=== PATIENT | male | born 1940 | race Caucasian/White ===

== ENCOUNTER 2016-09-01 11:55 | Outpatient (CLI) | payer MEDICARE | END 2016-09-01 23:59 | disposition home or self-care (01) | LOC: RAD 11:55 | PROVIDERS: ATTEND Family Medicine | DX: R50.9 Fever, unspecified (principal) | CPT/HCPCS: 71020-TC ==

== ENCOUNTER 2016-10-10 13:37 | Inpatient (IN) | payer MEDICARE ==
[2016-10-10] VITALS: BP 113/73
[~2016-10-10] VITALS: Ht 182.9 cm; Wt 90.8 kg
--- NOTE | 2016-10-10 13:55 | NUR ---
PT BIB SELF HE COMPLAINS OF MID STERNAL CHEST PRESSURE, NON RADIATING WITH SOB X 2 HOURS BEND UP. PT AMBULATORY ALERT ABLE TO MAKE NEEDS KNOWN. PLACED ON MONITOR. VSS.
[2016-10-10] MEDS ORDERED: ASPIRIN 325 MG TABLET ONE ×2 (13:56→15:19)
[2016-10-10] MEDS ORDERED: NITROGLYCERIN 0.4 MG/TAB BOTTLE ONE (13:56)
[2016-10-10] MEDS ORDERED: NITROGLYCERIN 0.4 MG/TAB BOTTLE SL ONE (14:00)
[2016-10-10] MEDS: ASPIRIN 325 MG TABLET PO ONE ×2 (14:01→14:05)
--- NOTE | 2016-10-10 14:01 | NUR ---
NITROGLYCERIN SL GIVEN
[2016-10-10 14:02] LABS: BASOPHILS % (AUTO) 0.1 % (0.0-2.0); EOSINOPHILS # (AUTO) 0.2 /CMM (0.0-0.7); EOSINOPHILS % (AUTO) 1.6 % (0.0-6.0); HEMATOCRIT 39 % (39-51); HEMOGLOBIN 12.9 g/dL (13.5-17.5); LYMPHOCYTES # (AUTO) 0.7 /CMM (0.8-4.8); LYMPHOCYTES % (AUTO) 7.7 % (20.0-44.0); MEAN CORPUSCULAR HEMOGLOBIN 27 PG (26.0-33.0); MEAN CORPUSCULAR HGB CONC 33 g/dl (31.0-36.0); MEAN CORPUSCULAR VOLUME 81 fL (80-96); MONOCYTES # (AUTO) 0.8 /CMM (0.1-1.30); MONOCYTES % (AUTO) 7.9 % (2.0-12.0); NEUTROPHILS # (AUTO) 7.9 /CMM (1.8-8.9); NEUTROPHILS % (AUTO) 82.7 % (43.0-81.0); PLATELET COUNT (AUTO) 183 /CMM (150-450); RDW COEFFICIENT OF VARIATION 15.8 (11.5-15.0); RED BLOOD CELL COUNT(AUTO) 4.75 MIL/uL (4.5-6.0); WHITE BLOOD COUNT (AUTO) 9.6 K/uL (4.3-11.0)
--- NOTE | 2016-10-10 14:05 | NUR ---
PT REFUSED ASPIRIN DUE TO SURGERY NEXT WEEK . MADE AWARE
--- NOTE | 2016-10-10 14:06 | NUR ---
NITROGLYCERIN GIVEN X2 ORDERED EVERY 5 MINS PT STILL COMPLAINS OF PRESSURE ON CHEST. BP 106/72 .HR 100
[2016-10-10 14:13] LABS: CALCIUM, SERUM 8.3 mg/dL (8.5-10.1); CARBON DIOXIDE 26 mmol/L (21-32); CHLORIDE 105 mmol/L (98-107); CREATININE 0.9 mg/dL (0.6-1.3); GLUCOSE 118 mg/dL (74-106); POTASSIUM 4.1 mmol/L (3.5-5.1); SODIUM SERUM 140 mmol/L (136-145); UREA NITROGEN, BLOOD 15 mg/dL (7-18)
[2016-10-10 14:16] LABS: PROTHROMBIN TIME 10.5 SECS (9.5-12.7)
[2016-10-10 14:21] LABS: TROPONIN I < 0.017 ng/mL (0.00-0.056)
[2016-10-10 14:25] LABS: B-TYPE NATRIURETIC PEPTIDE 592 PG/ML (0-125)
[2016-10-10] MEDS ORDERED: IV NS 0.9% 500 ML BAG IV ONE (15:00)
[2016-10-10] MEDS ORDERED: ASPIRIN 325 MG TABLET PO ONE (15:00)
--- NOTE | 2016-10-10 15:10 | NUR ---
PAGED CAMPAIGN MARKETING SPECIALIST PANEL DOCTOR - AWAITING CALL BACK
[2016-10-10] MEDS ORDERED: IV SET PRIMARY PUMP SET 1 EA INFUS.SET MC ONE (15:19)
[2016-10-10] MEDS ORDERED: IV NS 0.9% 1,000 ML ONE (15:19)
--- NOTE | 2016-10-10 15:19 | NUR ---
LAC#20 IV ACCESS
[2016-10-10] MEDS ORDERED: ACETAMINOPHEN 325 MG TABLET PO PRN (16:00)
[2016-10-10] MEDS ORDERED: ONDANSETRON HCL/PF 4 MG/2 ML VIAL IVP PRN (16:00)
[2016-10-10] MEDS ORDERED: Z GUARD REMEDY 2 OZ OINT TP PRN (16:00)
[2016-10-10] MEDS ORDERED: ENOXAPARIN SODIUM 60 MG/0.6 ML DISP.SYRIN SQ ONE (16:00)
[2016-10-10] MEDS ORDERED: NITROGLYCERIN 0.4 MG/TAB BOTTLE SL PRN (16:00)
[2016-10-10] MEDS ORDERED: MAG HYDROX/AL HYDROX/SIMETH 30 ML UDC PO PRN (16:00)
[2016-10-10] MEDS ORDERED: ZOLPIDEM TARTRATE 5 MG TABLET PO PRN (16:00)
[2016-10-10] MEDS ORDERED: MAGNESIUM HYDROXIDE 30 ML UDC PO PRN (16:00)
[2016-10-10] MEDS ORDERED: HYDROCODONE/APAP 5/325MG 1 EACH TABLET PO PRN (16:00)
--- NOTE | 2016-10-10 16:27 | NUR ---
TRANSFER PT TO TELEMETRY FLOOR VIA GURNEY USING ACLS PROTOCOL. BELONGINGS SENT WITH PATIENT. GAVE REPORT TO JENAE BECKWITH . PT MARTÍNSPARAM IN STABLE CONDITION.
[2016-10-10] MEDS: SIMVASTATIN 20 MG TABLET PO SCH ×2 (18:09→22:00)
[2016-10-10] MEDS: METOPROLOL TARTRATE 25 MG TABLET PO SCH (18:09)
[2016-10-10 18:32] LABS: THYROID STIMULATING HORMONE 0.79 uIU/mL (0.358-3.74)
[2016-10-10 18:44] LABS: MAGNESIUM 1.7 mg/dL (1.8-2.4); PHOSPHORUS 3.7 mg/dL (2.5-4.9)
[2016-10-10 20:00] VITALS: BP 104/60
--- NOTE | 2016-10-10 20:07 | NUR ---
RN CLOSING NOTES GAVE REPORT TO VISCOSITY WORKER NURSE. PATIENT IS IN STABLE CONDITION. COMPLAINS OF PAIN PRESSURE. BED IN LOW POSITION, LOCKED AND 2 SIDE RAILS ARE UP. MEDS LIST RECEIVED VERBALLY FROM PATIENT AND ENDORSED TO VISCOSITY WORKER NURSE TO ENTER TO THE SYSTEM. DR. SIGALA MADE AWARE OF PATIENT HOME LIST. PATIENT FRIEND GUILLERMO CHEN WILL COME AROUND 2129 TO TAKE THE PATIENT CAR'S INMAN AND BRING HIS CPAP. CHARGE NURSE AND SECURITY MADE AWARE. PATIENT HAS NO SIGN AND SYMPTOMS OF DISTRESS.
[2016-10-10] MEDS ORDERED: ACET-868 PO (20:14)
[2016-10-10] MEDS ORDERED: [UNRECOGNIZED DRUG - OTHER] PO (20:14)
[2016-10-10] MEDS ORDERED: GABA300C PO (20:14)
[2016-10-10] MEDS ORDERED: LIPITOR (20:14)
[2016-10-10] MEDS ORDERED: CALC-838 PO (20:14)
[2016-10-10] MEDS ORDERED: UBID100C26 PO (20:14)
[2016-10-10] MEDS ORDERED: BENA20TA78 PO (20:14)
[2016-10-10] MEDS ORDERED: METO25TA20 PO (20:14)
[2016-10-10] MEDS: MORPHINE SULFATE INJ 2 MG/ML DISP.SYRIN IV PRN (23:12)
[2016-10-11] VITALS (7 sets, daily range): BP systolic 102–119; BP diastolic 54–73
[2016-10-11] MEDS: METOPROLOL TARTRATE 25 MG TABLET PO SCH ×2 (06:27→15:49)
--- NOTE | 2016-10-11 06:30 | NUR ---
[facility] [employer] NOTES AWAKE & RESPONSIVE. NOT IN ANY DISTRESS. NO SOB NOTED. DENIES ANY PAIN OR DISCOMFORT AT THIS TIME. ON TELE AFIB/AFLUTTER @ 67 WITH IVF INFUSING WELL. AM CARE DONE. MONITORED ACCORDINGLY. CALL LIGHT WITHIN REACH. BED IN LOWEST POSITION. SR UP X 2 FOR SAFETY. WILL ENDORSE TO NEXT SHIFT.
[2016-10-11] MEDS: MORPHINE SULFATE INJ 2 MG/ML DISP.SYRIN IV PRN (06:35)
[2016-10-11 06:52] LABS: BASOPHILS % (AUTO) 0.3 % (0.0-2.0); EOSINOPHILS # (AUTO) 0.1 /CMM (0.0-0.7); EOSINOPHILS % (AUTO) 0.6 % (0.0-6.0); HEMATOCRIT 36 % (39-51); HEMOGLOBIN 11.9 g/dL (13.5-17.5); LYMPHOCYTES # (AUTO) 0.7 /CMM (0.8-4.8); LYMPHOCYTES % (AUTO) 7.8 % (20.0-44.0); MEAN CORPUSCULAR HEMOGLOBIN 27 PG (26.0-33.0); MEAN CORPUSCULAR HGB CONC 33 g/dl (31.0-36.0); MEAN CORPUSCULAR VOLUME 81 fL (80-96); MONOCYTES # (AUTO) 1.4 /CMM (0.1-1.30); MONOCYTES % (AUTO) 15.4 % (2.0-12.0); NEUTROPHILS # (AUTO) 6.7 /CMM (1.8-8.9); NEUTROPHILS % (AUTO) 75.9 % (43.0-81.0); PLATELET COUNT (AUTO) 185 /CMM (150-450); RDW COEFFICIENT OF VARIATION 17.1 (11.5-15.0); RED BLOOD CELL COUNT(AUTO) 4.46 MIL/uL (4.5-6.0); WHITE BLOOD COUNT (AUTO) 8.8 K/uL (4.3-11.0)
[2016-10-11 07:14] LABS: THYROID STIMULATING HORMONE 0.669 uIU/mL (0.358-3.74)
[2016-10-11 07:17] LABS: CALCIUM, SERUM 8.2 mg/dL (8.5-10.1); MAGNESIUM 1.6 mg/dL (1.8-2.4); PHOSPHORUS 3.3 mg/dL (2.5-4.9); POTASSIUM 4.4 mmol/L (3.5-5.1)
--- NOTE | 2016-10-11 08:04 | NUR ---
AM NOTES RECEIVED PT IN STABLE CONDITION, NO PAIN NOTED, PAIN MEDICATION WITH HELP, WILL MONITOR.
[2016-10-11] MEDS: ASPIRIN EC 81 MG TABLET.DR PO SCH (08:33)
[2016-10-11] MEDS: PANTOPRAZOLE 40 MG TABLET.DR PO SCH (08:33)
[2016-10-11] MEDS ORDERED: SECONDARY IV SET 1 EA INFUS.SET MC ONE (09:40)
[2016-10-11] MEDS: Magnesium 1GM/D5W 100ML PREMIX 100 ML IV SCH ×2 (09:44→11:10)
[2016-10-11 09:48] LABS: BASOPHILS % (MANUAL) 0 % (0.0-2.0); EOSINOPHILS % (MANUAL) 0 % (0-4); LYMPHOCYTES % (MANUAL) 17 % (16-48); MONOCYTES % (MANUAL) 13 % (0-11.0); NEUTROPHILS % (MANUAL) 70 (42-76)
[2016-10-11 09:49] LABS: HYPOCHROMASIA 1+; PLATELET ESTIMATE ADEQ
[2016-10-11] MEDS ORDERED: HYDROMORPHONE INJ 2 MG/ML DISP.SYRIN IV PRN (12:00)
--- NOTE | 2016-10-11 18:36 | NUR ---
PT IN STABLE CONDITION, NO SOB OR DISTRESS NOTED, PAIN MEDICATION WITH HELP, WILL INDORSE TO NEXT SHIFT FOR JOSE
--- NOTE | 2016-10-11 20:00 | NUR ---
MS ELIEL INITIAL NOTES PT SEEN IN BED AWAKE AND ALERT TALKING TO SOMEONE ON HIS CELLPHONE. DENIES ANY PAIN AT THIS TIME. HE STATED "IM OK". HEPLOCK PATENT AND INTACT. ENCOURAGE HIM TO USE THE CALL LIGHT IF NEEDS SOME HELP OR NEED THE NURSE. KEPT HIM COMFORTABLE AT ALL TIMES. WILL CONTINUE TO MONITOR.
[2016-10-11] MEDS: SIMVASTATIN 20 MG TABLET PO SCH (22:11)
[2016-10-12] MEDS: METOPROLOL TARTRATE 25 MG TABLET PO SCH ×2 (04:16→16:07)
[2016-10-12 07:36] LABS: EOSINOPHILS % (AUTO) 0.1 % (0.0-6.0); HEMATOCRIT 38 % (39-51); HEMOGLOBIN 12.5 g/dL (13.5-17.5); LYMPHOCYTES # (AUTO) 0.6 /CMM (0.8-4.8); LYMPHOCYTES % (AUTO) 6.8 % (20.0-44.0); MEAN CORPUSCULAR HEMOGLOBIN 27 PG (26.0-33.0); MEAN CORPUSCULAR HGB CONC 33 g/dl (31.0-36.0); MEAN CORPUSCULAR VOLUME 82 fL (80-96); MONOCYTES # (AUTO) 0.9 /CMM (0.1-1.30); MONOCYTES % (AUTO) 11.4 % (2.0-12.0); NEUTROPHILS # (AUTO) 6.8 /CMM (1.8-8.9); NEUTROPHILS % (AUTO) 81.7 % (43.0-81.0); PLATELET COUNT (AUTO) 179 /CMM (150-450); RDW COEFFICIENT OF VARIATION 16.8 (11.5-15.0); RED BLOOD CELL COUNT(AUTO) 4.66 MIL/uL (4.5-6.0); WHITE BLOOD COUNT (AUTO) 8.3 K/uL (4.3-11.0)
--- NOTE | 2016-10-12 07:57 | NUR ---
DAIRY HUSBANDRY TEACHER CLOSING NOTES PT AWAKE AND ALERT WATCHING TV, HE SLEPT WELL AFTER WE GAVE ZOFRAN GIVEN TO EASE HIS N/V. NO SIGNS OF ANY ACUTE DISTRESS NOTED, KEPT HIM ON SEMI FOWLERS POSITION . ALL DUE MEDS GIVEN AND ALL NEEDS MET. ENDORSE TO AM NURSE FOR CONTINUITY OF CARE.
[2016-10-12 08:00] VITALS: BP 94/65
[2016-10-12 08:07] LABS: CALCIUM, SERUM 8.8 mg/dL (8.5-10.1); CREATININE 0.9 mg/dL (0.6-1.3); MAGNESIUM 2.2 mg/dL (1.8-2.4); PHOSPHORUS 3.6 mg/dL (2.5-4.9); POTASSIUM 4.8 mmol/L (3.5-5.1)
[2016-10-12] MEDS: PANTOPRAZOLE 40 MG TABLET.DR PO SCH (08:17)
[2016-10-12] MEDS: ASPIRIN EC 81 MG TABLET.DR PO SCH (08:17)
--- NOTE | 2016-10-12 08:20 | NUR ---
RN MS NOTES PATIENT IN BED, ALERT AND ORIENTED, NO DISTRESS NOTED, NO COMPLAINT OF CHEST PAIN NOR N/V AT THIS TIME, ALL DUE MEDS GIVEN ORDERED, BREAKFAST CONSUMED AND TOLERATED WELL, PIV ON LAC PATENT AND INTACT, FLUSHES WELL, SAFETY MEASURES OBSERVED, CALL LIGHT PLACED WITHIN REACH, WILL CONTINUE TO MONITOR.
[2016-10-12 10:55] VITALS: BP 110/70
--- NOTE | 2016-10-12 11:16 | NUR ---
RN MS NOTES PATIENT SEEN BY DR. MÉNDEZ WITH NEW ORDER OF STRESS TEST FOR TOMORROW. ORDER NOTED AND CARRIED OUT.
[2016-10-12] MEDS ORDERED: MORPHINE SULFATE INJ 2 MG/ML DISP.SYRIN IV PRN (12:00)
[2016-10-12 16:00] VITALS: BP 125/82
--- NOTE | 2016-10-12 17:41 | NUR ---
RN MS NOTES PATIENT IN STABLE CONDITION, NO SIGNIFICANT CHANGE THIS SHIFT, FAMILY AT BEDSIDE FOR SUPPORT, WILL HAVE STRESS TEST IN AM, CONSENT SIGNED, NPO AFTER MIDNIGHT, PATIENT AWARE AND VERBALIZED UNDERSTANDING, PIV HL ON LEFT AC PATENT AND INTACT, FLUSHES WELL WITH NS, DENIES PAIN OR DISCOMFORT AT THIS TIME, CALL LIGHT WITHIN REACH, SAFETY MEASURES OBSERVED, LOW BED/LOCKED POSITION, SIDERAILS X2 UP, WILL CONTINUE TO MONITOR.
--- NOTE | 2016-10-12 18:58 | NUR ---
RN MS NOTES PATIENT WITH NO SIGNIFICANT CHANGE THIS SHIFT, NO COMPLAINT OF PAIN OR N/V AT THIS TIME, ASSISTED WITH ADL CARE, BED LOW LOCKED/POSITION, CALL LIGHT WITHIN REACH, WILL ENDORSE TO LAND RESOURCE SPECIALIST FOR JOSE.
--- NOTE | 2016-10-12 19:30 | NUR ---
MS RN INITIAL NOTE RECEIVED PT AWAKE AND ALERT, ORIENTED X4, AMBULATORY WITH A STEADY GAIT, NO COMPLAINTS OF PAIN OR RESPIRATORY DISTRESS NOTED DURING PHYSICAL ASSESSMENT, PT WILL BE NPO AFTER MIDNIGHT FOR LEXISCAN NUCLEAR STRESS TEST TOMORROW IN AM, CONSENTS SIGNED BY PATIENT AND PLACED IN CHART BY AM NURSE, LAC #20G IS INTACT AND PATENT SL, SAFETY MEASURES WILL BE KEPT IN PLACE, WILL ATTEND TO NEEDS DURING HOURLY ROUNDS AND NEEDED.
[2016-10-12 20:00] VITALS: BP 111/73
[2016-10-12] MEDS: SIMVASTATIN 20 MG TABLET PO SCH (21:57)
[2016-10-13 02:30] LABS: T3, FREE 2.8 pg/mL (2.0-4.4)
[2016-10-13] MEDS: METOPROLOL TARTRATE 25 MG TABLET PO SCH (04:32)
--- NOTE | 2016-10-13 05:45 | NUR ---
MS RN CLOSING NOTE PT REMAINED STABLE DURING JACK SPINNER, NO SIGNIFICANT CHANGES NOTED, NO PAIN OR RESPIRATORY DISTRESS NOTED DURING HOURLY ROUNDS, PT SLEPT INTERMITTENTLY EVEN AFTER AMBIEN WAS PROVIDED PER PATIENT'S REQUEST, PT IS SCHEDULE TO HAVE A LEXISCAN STRESS TEST TODAY POSSIBLY (8-8:30) CONSENT HAS BEEN SIGNED AND PLACED IN THE CHART, PT IS CLEAN/DRY AND COMFORTABLE, ALL NEED ATTENDED TO DURING HOURLY ROUNDS, WILL ENDORSE TO INCOMING NURSE FOR JOSE.
[2016-10-13] MEDS: PANTOPRAZOLE 40 MG TABLET.DR PO SCH (07:30)
[2016-10-13 08:00] VITALS: BP 105/63
--- NOTE | 2016-10-13 08:00 | NUR ---
MS/RN AM NOTES RECEIVED PATIENT IN BED, WITHOUT SOB, DENIES PAIN, IN STABLE CONDITION. O2 IN PLACE N/C 2L/M 02 SAT 96%. PATIENT IS NPO FOR CARDIAC TEST, WILL CONTINUE TO MONITOR ACCORDINGLY
[2016-10-13] MEDS ORDERED: REGADENOSON 0.4 MG/5 ML DISP.SYRIN IVP ONE (09:00)
[2016-10-13] MEDS: ASPIRIN EC 81 MG TABLET.DR PO SCH (09:00)
[2016-10-13] MEDS ORDERED: Aspirin PO (13:40)
--- NOTE | 2016-10-13 15:55 | NUR ---
DISCHARGED PATIENT IN STABLE CONDITION, VITAL SIGNS 115/76, 62, 18, 97.7, 96% RA 0/10 PAIN. DISCHARGE CARE PAPERS GIVEN, EXPLAINED, VERBALIZED UNDERSTANDING, ENCOURAGED TO F/U WITH PRIMARY CARE DOCTOR WITHIN A WEEK. ASSISTED TO THE CAR BY W/C WITH EXHAUST TENDER HELP AND FRIEND GUILLERMO
== END 2016-10-13 16:00 | disposition home or self-care (01) | DRG 206 ==
LOC: ER 13:40 → TELE 15:53 → MED 10-11 11:25
PROVIDERS: ADMIT Internal Medicine; ATTEND Internal Medicine
DX: M94.0 Chondrocostal junction syndrome [Tietze] (principal); I48.92 Unspecified atrial flutter; D68.59 Other primary thrombophilia; B02.29 Other postherpetic nervous system involvement; I10 Essential (primary) hypertension; I25.10 Atherosclerotic heart disease of native coronary artery without angina pectoris; I48.2 Chronic atrial fibrillation; K21.9 Gastro-esophageal reflux disease without esophagitis; M19.90 Unspecified osteoarthritis, unspecified site; N40.0 Benign prostatic hyperplasia without lower urinary tract symptoms; M51.36 Other intervertebral disc degeneration, lumbar region; D50.9 Iron deficiency anemia, unspecified; I27.2 Other secondary pulmonary hypertension; Z98.61 Coronary angioplasty status; R79.89 Other specified abnormal findings of blood chemistry
CPT/HCPCS: 36415; 71010-TC; 80048-TC; 80061-TC; 82024; 82306; 82533; 82728-TC; 82746; 83540-TC; 83735-TC; 83880; 84100-TC; 84146; 84402; 84403; 84439-TC; 84443-TC; 84481; 84484-TC; 85025-TC; 85730-TC; 87081-TC; 93307-TC; 93970-TC; A4606; A9502; J1170; J1650; J2270; J2405; J2785; J3475; J7030; Z7610

== ENCOUNTER 2016-11-20 09:51 | Outpatient (CLI) | payer MEDICARE ==
[~2016-11-20 09:51] MED LIST: ACET-868 PO; BENA20TA78 PO; CALC-838 PO; GABA300C PO; LIPITOR; METO25TA20 PO; UBID100C26 PO; [UNRECOGNIZED DRUG - OTHER] PO
== END 2016-11-20 23:59 | disposition home or self-care (01) ==
LOC: CT 09:51
PROVIDERS: ATTEND Family Medicine
DX: I67.82 Cerebral ischemia (principal); G31.9 Degenerative disease of nervous system, unspecified
CPT/HCPCS: 70450-TC

== ENCOUNTER 2017-11-30 09:19 | Outpatient (CLI) | payer MEDICARE ==
[~2017-11-30 09:19] MED LIST changes: -UBID100C26 PO; +UBID100C45 PO
== END 2017-11-30 23:59 | disposition home or self-care (01) ==
LOC: CT 09:19
PROVIDERS: ATTEND Family Medicine
DX: I67.2 Cerebral atherosclerosis (principal); I67.82 Cerebral ischemia; M48.02 Spinal stenosis, cervical region; M19.012 Primary osteoarthritis, left shoulder; M43.12 Spondylolisthesis, cervical region
CPT/HCPCS: 70450-TC; 72125-TC; 73200-TC

== ENCOUNTER 2017-12-31 09:02 | Outpatient (CLI) | payer MEDICARE | END 2017-12-31 23:59 | disposition home or self-care (01) | LOC: CT 09:02 | PROVIDERS: ATTEND Family Medicine | DX: I71.2 Thoracic aortic aneurysm, without rupture (principal); E27.8 Other specified disorders of adrenal gland; K86.89 Other specified diseases of pancreas | CPT/HCPCS: 71250-TC ==

== ENCOUNTER 2018-05-24 09:46 | Outpatient (CLI) | payer MEDICARE ==
[2018-06-09] MEDS ORDERED: ATOR10TA PO (12:36)
[2018-06-09] MEDS ORDERED: RANI150T8 PO (12:36)
[2018-06-09] MEDS ORDERED: APIX5TAB PO (12:36)
[2018-06-09] MEDS ORDERED: ASPI-1169 PO (12:36)
[2018-06-09] MEDS ORDERED: BUPR-51 PO (12:36)
[2018-06-09] MEDS ORDERED: LOSA25TA13 PO (12:36)
[2018-06-09] MEDS ORDERED: TEST200V3 IM (12:38)
== END 2018-05-24 23:59 | disposition home or self-care (01) ==
LOC: CT 09:46
PROVIDERS: ATTEND Family Medicine
DX: I67.2 Cerebral atherosclerosis (principal); I67.82 Cerebral ischemia
CPT/HCPCS: 70450-TC

== ENCOUNTER 2018-07-21 14:11 | Outpatient (CLI) | payer MEDICARE ==
[~2018-07-21 14:11] MED LIST changes: -ACET-868 PO; +APIX5TAB PO; +ASPI-1169 PO; +ATOR10TA PO; +BUPR-51 PO; -LIPITOR; +LOSA25TA27 PO; -METO25TA20 PO; +RANI150T8 PO; +TEST200V3 IM; -[UNRECOGNIZED DRUG - OTHER] PO
== END 2018-07-21 23:59 | disposition home or self-care (01) ==
LOC: RAD 14:11
PROVIDERS: ATTEND Family Medicine
DX: M16.11 Unilateral primary osteoarthritis, right hip (principal); M47.896 Other spondylosis, lumbar region
CPT/HCPCS: 73502

== ENCOUNTER 2018-08-16 15:25 | Outpatient (CLI) | payer MEDICARE | END 2018-08-16 23:59 | disposition home or self-care (01) | LOC: RAD 15:25 | PROVIDERS: ATTEND Family Medicine | DX: M47.816 Spondylosis without myelopathy or radiculopathy, lumbar region (principal) | CPT/HCPCS: 71100-TC; 73502 ==

== ENCOUNTER 2018-10-17 13:59 | Outpatient (CLI) | payer MEDICARE | END 2018-10-17 23:59 | disposition home or self-care (01) | LOC: CT 13:59 | PROVIDERS: ATTEND Family Medicine | DX: I67.82 Cerebral ischemia (principal); I67.2 Cerebral atherosclerosis | CPT/HCPCS: 70450-TC ==

== ENCOUNTER 2019-03-30 10:26 | Emergency (ER) | payer MEDICARE | END 2019-03-30 12:55 | disposition home or self-care (01) | DX: S00.11XA Contusion of right eyelid and periocular area, initial encounter (principal); S63.592A Other specified sprain of left wrist, initial encounter; S63.591A Other specified sprain of right wrist, initial encounter; R51 Headache; I10 Essential (primary) hypertension; I25.2 Old myocardial infarction; K21.9 Gastro-esophageal reflux disease without esophagitis; K50.90 Crohn's disease, unspecified, without complications; Z95.5 Presence of coronary angioplasty implant and graft; Z85.828 Personal history of other malignant neoplasm of skin; Z79.82 Long term (current) use of aspirin; W01.0XXA Fall on same level from slipping, tripping and stumbling without subsequent striking against object, initial encounter; Y93.01 Activity, walking, marching and hiking; Y92.481 Parking lot as the place of occurrence of the external cause; Y99.8 Other external cause status ==

== ENCOUNTER 2019-04-05 10:43 | Outpatient (CLI) | payer MEDICARE | END 2019-04-05 23:59 | disposition home or self-care (01) | LOC: RAD 10:43 | PROVIDERS: ATTEND Family Medicine | DX: M19.011 Primary osteoarthritis, right shoulder (principal); M18.12 Unilateral primary osteoarthritis of first carpometacarpal joint, left hand; M18.11 Unilateral primary osteoarthritis of first carpometacarpal joint, right hand; I70.0 Atherosclerosis of aorta; M79.89 Other specified soft tissue disorders; Z95.0 Presence of cardiac pacemaker | CPT/HCPCS: 71100-TC; 73200-TC ==

== ENCOUNTER 2021-05-06 12:13 | Inpatient (IN) | payer MEDICARE ==
[~2021-05-06] VITALS: Ht 188 cm; Wt 92.1 kg
[~2021-05-06 12:13] MED LIST changes: -BUPR-51 PO; +BUPR-54 PO
--- NOTE | 2021-05-06 12:25 | NUR ---
Patient came in to the er sent by PMD due to dizziness and headache since this morning around 7am. On room air, breathing evenly and unlabored. Connected to the monitor adn pulse ox. kept comfortable, will continue to monitor accordingly.
[2021-05-06] MEDS ORDERED: MECLIZINE HCL 12.5 MG TABLET PO ONE (12:30)
[2021-05-06] MEDS ORDERED: IV NS 0.9% 1,000 ML BAG IV ONE (12:30)
[2021-05-06] MEDS ORDERED: MECLIZINE HCL 25 MG TABLET ONE (12:42)
[2021-05-06 13:04] LABS: CALCIUM, SERUM 8.2 mg/dL (8.5-10.1); CARBON DIOXIDE 27 mmol/L (21-32); CHLORIDE 107 mmol/L (98-107); GLUCOSE 111 mg/dL (74-106); POTASSIUM 4.3 mmol/L (3.5-5.1); SODIUM SERUM 141 mmol/L (136-145); UREA NITROGEN, BLOOD 16 mg/dL (7-18)
[2021-05-06 13:10] LABS: ALANINE AMINOTRANSFERASE 40 U/L (12-78); ALBUMIN 3.9 g/dL (3.4-5.0); ALKALINE PHOSPHATASE 84 U/L (46-116); ASPARTATE AMINOTRANSFERASE 28 U/L (15-37); BILIRUBIN,DIRECT 0.2 mg/dL (0.0-0.2); BILIRUBIN,TOTAL 0.8 mg/dL (0.2-1.0); TOTAL PROTEIN, SERUM 7.2 g/dL (6.4-8.2)
[2021-05-06 13:32] LABS: BASOPHILS # (AUTO) 0.1 K/uL (0.0-0.2); BASOPHILS % (AUTO) 1.6 % (0.0-2.0); EOSINOPHILS % (AUTO) 3.7 % (0.0-6.0); HEMATOCRIT 50 % (39-51); HEMOGLOBIN 16.3 g/dL (13.5-17.5); LYMPHOCYTES # (AUTO) 0.7 K/uL (0.8-4.8); LYMPHOCYTES % (AUTO) 14.1 % (20.0-44.0); MEAN CORPUSCULAR HGB CONC 32 g/dl (31.0-36.0); MEAN CORPUSCULAR VOLUME 84 fL (80-96); MONOCYTES # (AUTO) 0.6 K/uL (0.1-1.30); MONOCYTES % (AUTO) 11.9 % (2.0-12.0); NEUTROPHILS # (AUTO) 3.6 K/uL (1.8-8.9); NEUTROPHILS % (AUTO) 68.7 % (43.0-81.0); PLATELET COUNT (AUTO) 157 K/uL (150-450); RED BLOOD CELL COUNT(AUTO) 6.01 MIL/uL (4.5-6.0); WHITE BLOOD COUNT (AUTO) 5.2 K/uL (4.3-11.0)
--- NOTE | 2021-05-06 13:47 | NUR ---
MOVE SHEET SUBMITTED.
--- NOTE | 2021-05-06 14:01 | NUR ---
[facility] CALLED IT PROFESSIONAL PAGED.
--- NOTE | 2021-05-06 14:13 | NUR ---
covid swab collected and sent to lab
[2021-05-06] MEDS ORDERED: AMLO-212 PO (14:25)
[2021-05-06] MEDS ORDERED: OMEP40CA21 PO (14:25)
[2021-05-06] MEDS ORDERED: Z GUARD REMEDY 2 OZ OINT TP PRN (15:30)
[2021-05-06] MEDS ORDERED: MAG HYDROX/AL HYDROX/SIMETH 30 ML UDC PO PRN (15:30)
[2021-05-06] MEDS ORDERED: DEXTROSE 50%-WATER 50 ML DISP.SYRIN IV PRN (15:30)
[2021-05-06] MEDS ORDERED: ONDANSETRON HCL/PF 4 MG/2 ML VIAL IVP PRN (15:30)
[2021-05-06] MEDS ORDERED: ENOXAPARIN SODIUM 40 MG/0.4 ML DISP.SYRIN SQ SCH (15:30)
[2021-05-06] MEDS ORDERED: MAGNESIUM HYDROXIDE 30 ML UDC PO PRN (15:30)
[2021-05-06] MEDS ORDERED: IV NS 0.9% 250 ML IV ONE (16:03)
[2021-05-06] MEDS ORDERED: IOHEXOL-350 100 ML VIAL IV ONE (16:03)
--- NOTE | 2021-05-06 16:23 | NUR ---
GOT BED 309-2 AMENA LE
--- NOTE | 2021-05-06 17:00 | NUR ---
wheeled patient via gurney accompanied by Rn and emt in no distress, RN assigned to patient at [facility] to assume care.
[2021-05-06] MEDS: BLOOD SUGAR DIAGNOSTIC 1 EACH STRIP IN SCH ×2 (17:05→21:24)
[2021-05-06] MEDS: APIXABAN 5 MG TABLET PO SCH (17:06)
--- NOTE | 2021-05-06 17:06 | NUR ---
INTERVENTION ANALYST NOTE RECEIVED PATIENT VIA [facility]. PATIENT IS A/O X 4. PATIENT IS BREATHING EVENLY AND NONLABORED ON ROOM AIR. NO SIGNS OF DISTRESS NOTED. VITALS BP 150/94, HR 78, O2 SAT 98%, TEMP 97.8. PATIENT DOES NOT COMPLAIN OF ANY PAIN AT THIS TIME. PATIENT AMBULATED WITH ASSISTANCE TO BED. PATIENT NOTED WITH SMALL GROWTH ON BACK OTHERWISE SKIN C/D/I. PATIENT ON TELE MONITORING SHOW NSR 86. PATIENT HAS IV ACCESS ON RAC # 20 GAUGE PATENT AND INTACT. PATIENT'S BELONGINGS ACCOUNTED FOR. PATIENT WAS ORIENTED TO THE ROOM AND HOW TO USE THE CALL LIGHT. SAFETY MEASURES IN PLACE, BED LOW LOCKED AND CALL LIGHT WITHIN REACH. WILL CONTINUE TO MONITOR
[2021-05-06] MEDS: INSULIN REGULAR, HUMAN 100 UNIT/ML 3 ML VIAL SQ PRN (17:10)
[2021-05-06 18:00] VITALS: BP 150/94
[2021-05-06] MEDS ORDERED: ATORVASTATIN 10 MG TABLET PO SCH (18:00)
--- NOTE | 2021-05-06 18:33 | NUR ---
MARRIAGE AND FAMILY TEACHER CLOSING NOTE PATIENT RESTING IN BED. PATIENT IS A/O X 4. PATIENT IS BREATHING EVENLY AND NONLABORED ON ROOM AIR. NO SIGNS OF DISTRESS NOTED. PATIENT DOES NOT COMPLAIN OF ANY PAIN AT THIS TIME. PATIENT ON TELE MONITORING SHOW NSR 86. PATIENT HAS IV ACCESS ON RAC # 20 GAUGE PATENT AND INTACT. ALL MEDICATION GIVEN ORDERED. MD NOTIFIED OF HEAD AND NECK CTA TEST RESULTS, NNO AT THIS TIME. SAFETY MEASURES IN PLACE, BED LOW LOCKED AND CALL LIGHT WITHIN REACH. WILL ENDORSE TO ONCOMING SHIFT
--- NOTE | 2021-05-06 19:05 | NUR ---
KIER PLEATER OPENING NOTES: RECEIVED PATIENT IN BED, AWAKE, A/O X2, CONFUSED. NO S/S OF DISTRESS NOTED. CALL LIGHT WITHIN REACH. BED ALARM ON. BED IN LOWEST AND LOCKED POSITION. HOB ELEVATED. URINAL AT THE BEDSIDE.
[2021-05-06 20:00] VITALS: BP 140/81
[2021-05-06] MEDS: GABAPENTIN 300 MG CAPSULE PO SCH (21:17)
[2021-05-06] MEDS: ZOLPIDEM TARTRATE 5 MG TABLET PO PRN (21:19)
--- NOTE | 2021-05-06 21:25 | NUR ---
blood sugar lpocxnw=134, no insulin coverage needed.
[2021-05-07] VITALS: BP 143/84
[2021-05-07 04:00] VITALS: BP 139/80
[2021-05-07] MEDS: ACETAMINOPHEN 325 MG TABLET PO PRN ×2 (06:12→18:28)
[2021-05-07 06:28] LABS: BASOPHILS # (AUTO) 0.1 K/uL (0.0-0.2); BASOPHILS % (AUTO) 0.9 % (0.0-2.0); EOSINOPHILS % (AUTO) 4.5 % (0.0-6.0); HEMATOCRIT 49 % (39-51); HEMOGLOBIN 16.2 g/dL (13.5-17.5); LYMPHOCYTES # (AUTO) 0.9 K/uL (0.8-4.8); LYMPHOCYTES % (AUTO) 15.7 % (20.0-44.0); MEAN CORPUSCULAR HGB CONC 33 g/dl (31.0-36.0); MEAN CORPUSCULAR VOLUME 84 fL (80-96); MONOCYTES # (AUTO) 0.7 K/uL (0.1-1.30); MONOCYTES % (AUTO) 11.5 % (2.0-12.0); NEUTROPHILS % (AUTO) 67.4 % (43.0-81.0); PLATELET COUNT (AUTO) 155 K/uL (150-450); RED BLOOD CELL COUNT(AUTO) 5.81 MIL/uL (4.5-6.0); WHITE BLOOD COUNT (AUTO) 5.9 K/uL (4.3-11.0)
[2021-05-07] MEDS: BLOOD SUGAR DIAGNOSTIC 1 EACH STRIP IN SCH ×4 (06:51→22:00)
--- NOTE | 2021-05-07 06:51 | NUR ---
blood fvhcx=064, no insulin coverage needed.
[2021-05-07 07:11] LABS: THYROID STIMULATING HORMONE 1.46 uIU/mL (0.358-3.74)
[2021-05-07 07:19] LABS: CALCIUM, SERUM 8.8 mg/dL (8.5-10.1); MAGNESIUM 2.1 mg/dL (1.8-2.4); PHOSPHORUS 3.7 mg/dL (2.5-4.9); POTASSIUM 3.9 mmol/L (3.5-5.1)
[2021-05-07 08:00] VITALS: BP 147/81
--- NOTE | 2021-05-07 08:00 | NUR ---
SLUGGISH IN AM,BUT ALERT AND ORIENTED X3.SKIN WARM AND DRY.
[2021-05-07] MEDS: CALCIUM CARB 600MG /VIT D 1 EACH TABLET PO SCH (09:58)
[2021-05-07] MEDS: AMLODIPINE BESYLATE 5 MG TABLET PO SCH (09:58)
[2021-05-07] MEDS: ASPIRIN 81 MG TAB.CHEW PO SCH (09:58)
[2021-05-07] MEDS: LOSARTAN POTASSIUM 25 MG TABLET PO SCH (09:59)
[2021-05-07] MEDS: BUPROPION XL 150 MG TAB.ER.24 PO SCH (09:59)
[2021-05-07] MEDS: APIXABAN 5 MG TABLET PO SCH ×2 (10:00→18:27)
[2021-05-07] MEDS: PANTOPRAZOLE 40 MG TABLET.DR PO SCH (10:04)
[2021-05-07] MEDS: INSULIN REGULAR, HUMAN 100 UNIT/ML 3 ML VIAL SQ PRN (12:42)
[2021-05-07 16:00] VITALS: BP 156/99
[2021-05-07] MEDS ORDERED: ATORVASTATIN 40 MG TABLET PO SCH (18:00)
--- NOTE | 2021-05-07 18:30 | NUR ---
MAINE AND DR. LUCAS IN.ORDERS GIVEN.WENT TO CAT SCAN.DR. LUCAS CALLING IN TO CHECK ON PT. RN GAVE DR. LUCAS REPORT.SON IN TO VISIT.
--- NOTE | 2021-05-07 19:05 | NUR ---
MS RN OPENING NOTES: RECEIVED PATIENT IN BED, AWAKE, A/O X2. NO S/S OF DISTRESS NOTED. CALL LIGHT WITHIN REACH. BED ALARM ON. BED IN LOWEST AND LOCKED POSITION. HOB ELEVATED AT ALL TIMES. URINAL AT THE BEDSIDE. NO COMPLAIN OF PAIN. CLARICE MORILLO ASSISTED THE PT TO THE BEDSIDE COMMODE, NO BOWEL MOVEMENT,CONSTIPATION, WILL GIVE PRN MED FOR CONSTIPATION.
[2021-05-07 20:00] VITALS: BP 161/96
--- NOTE | 2021-05-07 20:10 | NUR ---
PATIENT'S CAME TO VISIT. PATIENT IS CALM AND COOPERATIVE. ABLE TO MAKE NEEDS KNOWN.
--- NOTE | 2021-05-07 20:44 | NUR ---
INFORMED INSTRUCTIONAL SUPPORT SERVICES DIRECTOR HUONG RE: STILL COMPLAINING OF HEADACHE 10/10 RADIATING TO THE RIGHT EYE.
--- NOTE | 2021-05-07 20:50 | NUR ---
INFORMED RADIOLOGY SERVICES MANAGER HUONG RE: BP 161/96.
[2021-05-07] MEDS ORDERED: PROCHLORPERAZINE EDISYLATE 10 MG/2 ML VIAL IM ONE ×2 (21:00→22:00)
[2021-05-07] MEDS ORDERED: diphenhydrAMINE HCL 50 MG/ML VIAL IM ONE ×2 (21:00→22:00)
[2021-05-07] MEDS: GABAPENTIN 300 MG CAPSULE PO SCH (21:15)
--- NOTE | 2021-05-07 21:48 | NUR ---
PER CHARGE NURSE BRENDA, NO COMPAZINE MED AVAILABLE PER SUPERVISOR FLOOR ASSEMBLY JORGE BORJA AWARE.
[2021-05-07] MEDS ORDERED: MORPHINE SULFATE INJ 4 MG/ML DISP.SYRIN IV ONE (22:00)
--- NOTE | 2021-05-07 22:17 | NUR ---
BLOOD SUGAR= 125, NO INSULIN COVERAGE NEEDED.
[2021-05-07] MEDS: ZOLPIDEM TARTRATE 5 MG TABLET PO PRN (23:38)
[2021-05-08] MEDS: BLOOD SUGAR DIAGNOSTIC 1 EACH STRIP IN SCH ×2 (07:05→12:03)
--- NOTE | 2021-05-08 07:06 | NUR ---
blood epymx=997, no insulin coverage needed.
--- NOTE | 2021-05-08 07:29 | NUR ---
RN OPENING NOTE- PT IN BED, AWAKE, A/O TO PERSON AND PLACE . SOME CONFUSION NO S/S OF DISTRESS NOTED. CALL LIGHT WITHIN REACH. BED ALARM ON. BED IN LOWEST AND LOCKED POSITION. HOB ELEVATED AT ALL TIMES. URINAL AT THE BEDSIDE. NO COMPLAINT OF PAIN. MONITOR AND ASSIST
[2021-05-08] MEDS: PANTOPRAZOLE 40 MG TABLET.DR PO SCH (07:53)
[2021-05-08 08:00] VITALS: BP 121/76
[2021-05-08] MEDS: BUPROPION XL 150 MG TAB.ER.24 PO SCH (08:35)
[2021-05-08] MEDS: ASPIRIN 81 MG TAB.CHEW PO SCH (08:35)
[2021-05-08] MEDS: CALCIUM CARB 600MG /VIT D 1 EACH TABLET PO SCH (08:35)
[2021-05-08 08:36] VITALS: BP 124/76
[2021-05-08] MEDS: LOSARTAN POTASSIUM 25 MG TABLET PO SCH (08:36)
[2021-05-08] MEDS: AMLODIPINE BESYLATE 5 MG TABLET PO SCH (08:36)
[2021-05-08] MEDS: APIXABAN 5 MG TABLET PO SCH (08:37)
--- NOTE | 2021-05-08 13:30 | NUR ---
RN NOTE- PT DISCHARGED AT THIS TIME [facility]unitha WALL TO [facility]. REPORT PHONED INTO FACILITY. PT ALERT ORIENTED TO PERSON PLACE PURPOSE. SPOKE W SPOUSE GUILLERMO AND NOTIFIED OF TRANSFER. PT MED COMPLIANT, VS STABLE. ASSISTED TO MAE, ALL VALUABLES RETURNED , ID WRISTBAND REMOVED. HEP LOCK REMOVED FROM RT AC. ESCORTED OFF UNIT BY AMBULANCE STAFF.
== END 2021-05-08 13:40 | DRG 69 ==
LOC: ER 12:25 → TELE 16:35 → MED 05-07 10:04
DX: G45.9 Transient cerebral ischemic attack, unspecified (principal); K50.90 Crohn's disease, unspecified, without complications; I48.20 Chronic atrial fibrillation, unspecified; I50.32 Chronic diastolic (congestive) heart failure; B02.29 Other postherpetic nervous system involvement; I99.8 Other disorder of circulatory system; I25.10 Atherosclerotic heart disease of native coronary artery without angina pectoris; Z20.822 Contact with and (suspected) exposure to COVID-19; K21.9 Gastro-esophageal reflux disease without esophagitis; N40.0 Benign prostatic hyperplasia without lower urinary tract symptoms; I11.0 Hypertensive heart disease with heart failure; Z95.5 Presence of coronary angioplasty implant and graft; I25.2 Old myocardial infarction; M19.90 Unspecified osteoarthritis, unspecified site; Z85.828 Personal history of other malignant neoplasm of skin; Z88.0 Allergy status to penicillin; Z91.013 Allergy to seafood; Z79.82 Long term (current) use of aspirin; Z79.01 Long term (current) use of anticoagulants; Z79.899 Other long term (current) drug therapy; Z87.442 Personal history of urinary calculi; Z95.0 Presence of cardiac pacemaker; E78.5 Hyperlipidemia, unspecified; Z86.19 Personal history of other infectious and parasitic diseases; E11.36 Type 2 diabetes mellitus with diabetic cataract; E11.42 Type 2 diabetes mellitus with diabetic polyneuropathy; I66.21 Occlusion and stenosis of right posterior cerebral artery; I67.2 Cerebral atherosclerosis; I70.0 Atherosclerosis of aorta
CPT/HCPCS: 36415; 70450-TC; 70496-TC; 70498-TC; 71045-TC; 80048-TC; 80061-TC; 80076-TC; 82962-TC; 83735-TC; 84100-TC; 84443-TC; 84484-TC; 85025-TC; 85730-TC; 87081-TC; 93307-TC; 97116-TC; 97530-TC; C9803; G0378; J0780; J1200; J1815; J7030; J7050; J8597; Q9967

== ENCOUNTER 2021-09-25 19:09 | Emergency (ER) | payer MEDICARE ==
[~2021-09-25] VITALS: Ht 177.8 cm; Wt 90.7 kg
[~2021-09-25 19:09] MED LIST changes: +AMLO-212 PO; -BENA20TA78 PO; +OMEP40CA21 PO; -RANI150T8 PO
--- NOTE | 2021-09-25 19:50 | NUR ---
pt bibs c/o GLF "missed step/lost balance fell and hit back of head" at home. -loc. pt a/o x 4 rr even and unlabored, rr even and no sob. pt connected to monitor.
--- NOTE | 2021-09-25 19:51 | NUR ---
pt returned from ct
--- NOTE | 2021-09-25 19:51 | NUR ---
rad at bedside
--- NOTE | 2021-09-25 21:11 | NUR ---
PATIENT FOR DISCHARGE. CALLED [facility] TO PICK HIM UP. ETA 1 HOUR
--- NOTE | 2021-09-25 22:06 | NUR ---
CAME TO PICK PATIENT.
--- NOTE | 2021-09-25 22:06 | NUR ---
Patient discharged to home in stable condition. Written and verbal after care instructions given. Patient verbalizes understanding of instruction.
[2021-09-25 22:07] VITALS: BP 141/74
== END 2021-09-25 22:08 | disposition home or self-care (01) ==
LOC: ER 19:10
DX: S13.4XXA Sprain of ligaments of cervical spine, initial encounter (principal); S00.03XA Contusion of scalp, initial encounter; S40.012A Contusion of left shoulder, initial encounter; I10 Essential (primary) hypertension; I21.9 Acute myocardial infarction, unspecified; K21.9 Gastro-esophageal reflux disease without esophagitis; I25.10 Atherosclerotic heart disease of native coronary artery without angina pectoris; Z87.19 Personal history of other diseases of the digestive system; Z88.0 Allergy status to penicillin; Z91.013 Allergy to seafood; Z79.82 Long term (current) use of aspirin; Z79.899 Other long term (current) drug therapy; W01.10XA Fall on same level from slipping, tripping and stumbling with subsequent striking against unspecified object, initial encounter; Y93.89 Activity, other specified; Y92.89 Other specified places as the place of occurrence of the external cause; Y99.8 Other external cause status
CPT/HCPCS: 70450-TC; 72125-TC; 73030-TC

== ENCOUNTER 2021-09-29 14:43 | Inpatient (IN) | payer MEDICARE ==
[~2021-09-29] VITALS: Ht 182.9 cm; Wt 81.6 kg
--- NOTE | 2021-09-29 15:33 | NUR ---
PAGED DR. SANTIAGO AND NOW SPEAKING TO DR. HERNANDEZ
[2021-09-29] MEDS ORDERED: BACITRACIN ZINC OINT PACKET 1 EA PACKET TP ONE ×2 (16:00→16:36)
[2021-09-29] MEDS ORDERED: ANAS1TAB50 PO (16:34)
[2021-09-29] MEDS ORDERED: CYAN10006 IM (16:34)
--- NOTE | 2021-09-29 16:34 | NUR ---
ASSUMED CARE. CT SCAN DONE. PT AAOX4, VSS. RR EVEN & UNLABORED. DENIES CP, SOB, DIZZINESS, N/V AT THIS TIME. WILL CONT TO MONITOR. AT BS.
[2021-09-29 17:00] LABS: BASOPHILS % (AUTO) 0.9 % (0.0-2.0); EOSINOPHILS % (AUTO) 2.3 % (0.0-6.0); HEMATOCRIT 36 % (39-51); HEMOGLOBIN 12.5 g/dL (13.5-17.5); LYMPHOCYTES # (AUTO) 0.9 K/uL (0.8-4.8); MEAN CORPUSCULAR HGB CONC 35 g/dl (31.0-36.0); MEAN CORPUSCULAR VOLUME 90 fL (80-96); MONOCYTES # (AUTO) 0.4 K/uL (0.1-1.30); MONOCYTES % (AUTO) 9.8 % (2.0-12.0); PLATELET COUNT (AUTO) 174 K/uL (150-450); RED BLOOD CELL COUNT(AUTO) 4.01 MIL/uL (4.5-6.0); WHITE BLOOD COUNT (AUTO) 4.5 K/uL (4.3-11.0)
[2021-09-29 17:24] LABS: ALBUMIN 3.4 g/dL (3.4-5.0); BILIRUBIN,DIRECT 0.1 mg/dL (0.0-0.2); BILIRUBIN,TOTAL 0.4 mg/dL (0.2-1.0); CALCIUM, SERUM 8.7 mg/dL (8.5-10.1); CREATININE 0.7 mg/dL (0.6-1.3); POTASSIUM 3.4 mmol/L (3.5-5.1); TOTAL PROTEIN, SERUM 6.2 g/dL (6.4-8.2)
--- NOTE | 2021-09-29 17:50 | NUR ---
PT RESTING, EASILY AWAKEN BY VERBAL STIMULI. AAOX4, VSS. RR EVEN & UNLABORED. DENIES CP, SOB, DIZZINESS, BARRETO, N/V AT THIS TIME. WILL CONT TO MONITOR.
--- NOTE | 2021-09-29 18:38 | NUR ---
DR FLORES AT BEDSIDE TALKING TO THE PATIENT
--- NOTE | 2021-09-29 18:47 | NUR ---
BED 118-1.
--- NOTE | 2021-09-29 19:12 | NUR ---
COVID SWAB DONE AND SENT TO LAB
--- NOTE | 2021-09-29 19:28 | NUR ---
MRSA SWAB COLLECTED AND SENT TO LAB. PATIENT'S BELONGINGS LIST DONE.
[2021-09-29 20:00] VITALS: BP 143/73
[2021-09-29] MEDS ORDERED: ONDANSETRON HCL/PF 4 MG/2 ML VIAL IVP PRN (20:00)
[2021-09-29] MEDS ORDERED: ACETAMINOPHEN 325 MG TABLET PO PRN (20:00)
[2021-09-29] MEDS ORDERED: POTASSIUM CHLORIDE 20 MEQ TAB.PRT.SR PO ONE (20:00)
[2021-09-29] MEDS ORDERED: Z GUARD REMEDY 4 OZ OINT TP PRN (20:00)
--- NOTE | 2021-09-29 20:07 | NUR ---
REPORT GIVEN TO AMENA HENRIQUEZ FOR JOSE.
--- NOTE | 2021-09-29 20:20 | NUR ---
FIRE EXTINGUISHER SPRINKLER INSPECTOR NOTES: RECEIVED PATIENT FROM ER VIA STECHER, PLACED IN ROOM 115-1. DIAGNOSIS- FREQUENT FALL. PATIENT ALERT, AWAKE, ORIENTED X4 AT THIS MOMENT AND VERBALLY RESPONSIVE. ON ROOM AIR, O2 SAT 98% AND PT TOLERATED WELL. NO SOB, BREATHING EVEN AND UNLABORED. BODY ASSESSMENT DONE. NOTED LEFT ELBOW AND LT PALM WITH SKIN ABRASION. REDDISH IN COLOR. NO BLEEDING. NOTED REDNESS ON RT UPPER ARM. NO C/O PAIN OR DISCOMFORT. NO ACUTE DISTRESS. COOPERATIVE. PT CONTINENT. PROVIDED URINAL. ALL SAFETY MEASURE IN PLACE. BED ALARM ON. BED IN LOW POSITION AND LOCKED. PLACE CALL LIGHT WITH IN REACH. WILL CONTINUE TO MONITOR FOR ANY CHANGES.
[2021-09-29] MEDS: GABAPENTIN 300 MG CAPSULE PO SCH (21:10)
[2021-09-29] MEDS: IV NS 0.9% 1,000 ML IV PRN (22:23)
[2021-09-30] VITALS: BP 135/63
[2021-09-30 04:00] VITALS: BP 112/55
--- NOTE | 2021-09-30 06:40 | NUR ---
RN CLOSING NOTES: PATIENT SLEEPING IN BED ALERT, AWAKE, ORIENTED X4 AT THIS MOMENT AND VERBALLY RESPONSIVE. ON ROOM AIR, O2 SAT 98% AND PT TOLERATED WELL. NO SOB, BREATHING EVEN AND UNLABORED. NO C/O PAIN OR DISCOMFORT. NO ACUTE DISTRESS. COOPERATIVE. PT CONTINENT ON BLADDER. ABLE TO USE URINAL. ALL DUE MEDS GIVEN ORDER. ALL SAFETY MEASURE IN PLACE. BED ALARM ON. BED IN LOW POSITION AND LOCKED. PLACE CALL LIGHT WITH IN REACH. WILL ENDORSE TO MORNING SHIFT NURSE.
[2021-09-30 06:42] LABS: BASOPHILS % (AUTO) 0.7 % (0.0-2.0); EOSINOPHILS % (AUTO) 3.6 % (0.0-6.0); HEMATOCRIT 35 % (39-51); HEMOGLOBIN 12.6 g/dL (13.5-17.5); LYMPHOCYTES # (AUTO) 0.8 K/uL (0.8-4.8); LYMPHOCYTES % (AUTO) 18.5 % (20.0-44.0); MEAN CORPUSCULAR HGB CONC 36 g/dl (31.0-36.0); MEAN CORPUSCULAR VOLUME 89 fL (80-96); MONOCYTES # (AUTO) 0.5 K/uL (0.1-1.30); MONOCYTES % (AUTO) 10.9 % (2.0-12.0); NEUTROPHILS % (AUTO) 66.3 % (43.0-81.0); PLATELET COUNT (AUTO) 162 K/uL (150-450); RED BLOOD CELL COUNT(AUTO) 3.96 MIL/uL (4.5-6.0); WHITE BLOOD COUNT (AUTO) 4.5 K/uL (4.3-11.0)
[2021-09-30 06:59] LABS: ALBUMIN 3.2 g/dL (3.4-5.0); BILIRUBIN,TOTAL 0.7 mg/dL (0.2-1.0); CALCIUM, SERUM 8.4 mg/dL (8.5-10.1); CREATININE 0.8 mg/dL (0.6-1.3); MAGNESIUM 1.8 mg/dL (1.8-2.4); PHOSPHORUS 3.5 mg/dL (2.5-4.9); TOTAL PROTEIN, SERUM 5.8 g/dL (6.4-8.2)
[2021-09-30 07:11] LABS: THYROID STIMULATING HORMONE 1.036 uIU/mL (0.358-3.74)
--- NOTE | 2021-09-30 07:30 | NUR ---
RN OPENING NOTES: RECEIVED PATIENT SLEEPING IN BED ALERT, AWAKE, ORIENTED X4 . VERBALLY RESPONSIVE. ON ROOM AIR, O2 SAT 98% AND PT TOLERATED WELL. NO SOB, BREATHING EVEN AND UNLABORED. NO C/O PAIN OR DISCOMFORT. NO ACUTE DISTRESS. PT CONTINENT ON BLADDER. ABLE TO USE URINAL ALL SAFETY MEASURE IN PLACE. BED ALARM ON. BED IN LOW POSITION AND LOCKED. PLACE CALL LIGHT WITH IN REACH.WILL CONTINUE TO MONITOR.
[2021-09-30 08:00] VITALS: BP 122/73
[2021-09-30] MEDS: PANTOPRAZOLE 40 MG TABLET.DR PO SCH (08:15)
[2021-09-30] MEDS: AMLODIPINE BESYLATE 5 MG TABLET PO SCH (08:53)
[2021-09-30] MEDS: BUPROPION XL 150 MG TAB.ER.24 PO SCH (08:53)
[2021-09-30] MEDS: LOSARTAN POTASSIUM 25 MG TABLET PO SCH (08:54)
[2021-09-30] MEDS: ASPIRIN 81 MG TAB.CHEW PO SCH (09:13)
[2021-09-30] MEDS: APIXABAN 5 MG TABLET PO SCH ×2 (09:14→16:19)
[2021-09-30 12:00] VITALS: BP 135/76
[2021-09-30] MEDS: IV NS 0.9% 1,000 ML IV PRN (13:51)
[2021-09-30 16:00] VITALS: BP 146/84
[2021-09-30] MEDS: ATORVASTATIN 10 MG TABLET PO SCH (17:05)
--- NOTE | 2021-09-30 18:39 | NUR ---
RN CLOSING NOTES: PATIENT AWAKE IN BED ALERT, AWAKE, ORIENTED X4 . VERBALLY RESPONSIVE. ON ROOM AIR, O2 SAT 98% AND PT TOLERATED WELL. NO SOB, BREATHING EVEN AND UNLABORED. NO C/O PAIN OR DISCOMFORT. NO ACUTE DISTRESS. PT CONTINENT ON BLADDER. ABLE TO USE URINAL . DUE MEDS GIVEN ORDERED.ALL SAFETY MEASURE IN PLACE. BED ALARM ON. BED IN LOW POSITION AND LOCKED. PLACE CALL LIGHT WITH IN REACH. WILL ENDORSE FOR JOSE.
--- NOTE | 2021-09-30 19:10 | NUR ---
RN OPENING NOTES RECEIVED PATIENT ON BED, AWAKE, A/O X 4 WITH CONFUSION. ABLE TO MAKE NEEDS KNOWN, RESPIRATORY EVEN AND UNLABORED, NO SOB NOTED, NOT IN DISTRESS. REMAIN AFEBRILE. ON ROOM AIR SATING AT 98%. NOTED WITH RIGHT FOREARM #18 PERIPHERAL LINE, INTACT, PATENT AND FLUSHED WITH NS. NO INFILTRATION NOTED AT SITE. RUNNING WITH IVF NS 1L @ 75 ML/HR. ALL SAFETY MEASURE PROVIDED, BED ON LOWEST POSITION, LOCKED. BED ALARM ARMED. CONTINUE TO MONITOR.
[2021-09-30 20:00] VITALS: BP 130/81
[2021-09-30] MEDS: GABAPENTIN 300 MG CAPSULE PO SCH (21:58)
[2021-10-01] VITALS: BP 139/89
[2021-10-01] MEDS: IV NS 0.9% 1,000 ML IV PRN (03:49)
[2021-10-01 04:00] VITALS: BP 146/89
--- NOTE | 2021-10-01 07:35 | NUR ---
RN OPENING NOTE RECEIVE REPORT FROM MANAGER MARKETING SALES NURSE. PATIENT IN STABLE CONDITION AND RESTING COMFORTABLY. WILL FOLLOW UP AM LABS AND DOCTORS ORDERS. PROPER ISOLATION IN PLACE. BED ON LOWEST POSITION WITH HOB ELEVATED AND 3 SIDE RAIL UP. CALL LIGHT WITHIN REACH. WILL CONTINUE TO MONITOR.
--- NOTE | 2021-10-01 07:43 | NUR ---
RN CLOSING NOTES NO SIGNIFICANT CHANGES THROUGH OUT THE SHIFT, RESPIRATORY EVEN AND UNLABORED, NO SOB NOTED, NOT IN DISTRESS. REMAIN AFEBRILE. ON ROOM AIR SATING AT 98%. NO INFILTRATION NOTED AT SITE. RUNNING WITH IVF NS 1L @ 75 ML/HR. ALL DUE MEDS GIVEN ORDERED. ALL SAFETY MEASURE PROVIDED, BED ON LOWEST POSITION, LOCKED. BED ALARM ARMED.
[2021-10-01 08:00] VITALS: BP 163/96
[2021-10-01 08:03] LABS: CALCIUM, SERUM 8.8 mg/dL (8.5-10.1); CREATININE 0.7 mg/dL (0.6-1.3); MAGNESIUM 1.8 mg/dL (1.8-2.4); PHOSPHORUS 3.8 mg/dL (2.5-4.9); POTASSIUM 3.9 mmol/L (3.5-5.1)
[2021-10-01 08:21] LABS: BASOPHILS % (AUTO) 0.8 % (0.0-2.0); EOSINOPHILS % (AUTO) 3.3 % (0.0-6.0); HEMATOCRIT 41 % (39-51); HEMOGLOBIN 14.1 g/dL (13.5-17.5); LYMPHOCYTES # (AUTO) 0.9 K/uL (0.8-4.8); MEAN CORPUSCULAR HGB CONC 35 g/dl (31.0-36.0); MEAN CORPUSCULAR VOLUME 89 fL (80-96); MONOCYTES # (AUTO) 0.5 K/uL (0.1-1.30); MONOCYTES % (AUTO) 9.4 % (2.0-12.0); NEUTROPHILS # (AUTO) 3.4 K/uL (1.8-8.9); NEUTROPHILS % (AUTO) 68.5 % (43.0-81.0); PLATELET COUNT (AUTO) 177 K/uL (150-450); RED BLOOD CELL COUNT(AUTO) 4.56 MIL/uL (4.5-6.0); WHITE BLOOD COUNT (AUTO) 4.9 K/uL (4.3-11.0)
[2021-10-01] MEDS: PANTOPRAZOLE 40 MG TABLET.DR PO SCH (09:32)
[2021-10-01] MEDS: AMLODIPINE BESYLATE 5 MG TABLET PO SCH (09:33)
[2021-10-01] MEDS: LOSARTAN POTASSIUM 25 MG TABLET PO SCH (09:33)
[2021-10-01] MEDS: BUPROPION XL 150 MG TAB.ER.24 PO SCH (09:34)
[2021-10-01] MEDS: ASPIRIN 81 MG TAB.CHEW PO SCH (09:34)
[2021-10-01] MEDS: APIXABAN 5 MG TABLET PO SCH ×2 (09:38→17:34)
[2021-10-01 12:00] VITALS: BP 138/77
[2021-10-01 16:00] VITALS: BP 135/87
[2021-10-01] MEDS: ATORVASTATIN 10 MG TABLET PO SCH (17:32)
--- NOTE | 2021-10-01 20:12 | NUR ---
RN NOTE PATIENT HAVE BEEN DISCHARGED TO [facility]. PATIENT IN STABLE CONDITION AT TIME OF DISCHARGE. REPORT WAS GIVEN TO JOHNATHAN BECKWITH.
[2021-10-03] MEDS ORDERED: ANASTROZOLE 1 MG TABLET PO SCH (20:00)
[2021-10-29] MEDS ORDERED: CYANOCOBALAMIN 1,000 MCG/ML VIAL IM SCH (09:00)
== END 2021-10-01 20:28 | DRG 74 ==
LOC: ER 14:45 → TRANSITION 18:43 → TELE1 18:51
PROVIDERS: ADMIT Nurse Practitioner Acute Care; ATTEND Student in an Organized Health Care Education/Training Program
DX: G90.8 Other disorders of autonomic nervous system (principal); I69.354 Hemiplegia and hemiparesis following cerebral infarction affecting left non-dominant side; K50.90 Crohn's disease, unspecified, without complications; I48.91 Unspecified atrial fibrillation; K21.9 Gastro-esophageal reflux disease without esophagitis; Z79.01 Long term (current) use of anticoagulants; I25.10 Atherosclerotic heart disease of native coronary artery without angina pectoris; E87.6 Hypokalemia; E78.5 Hyperlipidemia, unspecified; Z20.822 Contact with and (suspected) exposure to COVID-19; Z86.19 Personal history of other infectious and parasitic diseases; I10 Essential (primary) hypertension; I25.2 Old myocardial infarction; Z95.5 Presence of coronary angioplasty implant and graft; N40.0 Benign prostatic hyperplasia without lower urinary tract symptoms; Z95.0 Presence of cardiac pacemaker; Z85.828 Personal history of other malignant neoplasm of skin; H26.9 Unspecified cataract; Z88.0 Allergy status to penicillin; Z91.013 Allergy to seafood; Z79.82 Long term (current) use of aspirin; L80 Vitiligo; R29.6 Repeated falls; W18.30XA Fall on same level, unspecified, initial encounter; Y92.481 Parking lot as the place of occurrence of the external cause; Z98.890 Other specified postprocedural states; Z87.442 Personal history of urinary calculi; M19.012 Primary osteoarthritis, left shoulder; G93.89 Other specified disorders of brain; E11.9 Type 2 diabetes mellitus without complications
CPT/HCPCS: 36415; 70450-TC; 71045-TC; 73030-TC; 73080-TC; 80048-TC; 80053-TC; 80061-TC; 80076-TC; 83540-TC; 83735-TC; 84100-TC; 84443-TC; 84484-TC; 85025-TC; 85730-TC; 86850-TC; 87081-TC; 93307-TC; 93880-TC; 97116-TC; 97530-TC; G0378; J7030

== ENCOUNTER 2022-09-21 18:19 | Emergency (ER) | payer MEDICARE ==
[~2022-09-21] VITALS: Ht 182.9 cm; Wt 86.2 kg
[~2022-09-21 18:19] MED LIST changes: +ANAS1TAB50 PO; -APIX5TAB PO; +CYAN10006 IM; -TEST200V3 IM; -UBID100C45 PO
--- NOTE | 2022-09-21 20:17 | NUR ---
URINE SPECIMEN SENT LAB.
[2022-09-21 20:18] VITALS: BP 151/85
--- NOTE | 2022-09-21 20:20 | NUR ---
[id number] FROM [facility] C/O WITNESSED DOOR HITTING PT'S HEAD. -LOC, -PAIN -TRAUMA. PATIENT IS AAOX4. ABLE TO MAKE NEEDS KNOWN. AMBULATORY. PLACED COMFORTABLY IN BED. VITALS CHECKED.
[2022-09-21] MEDS ORDERED: ACETAMINOPHEN ES 500 MG TABLET PO ONE (21:30)
[2022-09-21] MEDS ORDERED: ACETAMINOPHEN ES 500 MG TABLET ONE (21:34)
--- NOTE | 2022-09-21 23:21 | NUR ---
CALLED PATIENT'S EMERGENCY CONTACT TO HAVE PATIENT PICKED UP BIT CALL GOES STRAIGHT TO [employer].
--- NOTE | 2022-09-21 23:55 | NUR ---
REPORT GIVEN TO [facility].
--- NOTE | 2022-09-22 00:12 | NUR ---
[facility] ETA IN 90 MIN.
--- NOTE | 2022-09-22 02:02 | NUR ---
[facility] AT PT'S BEDSIDE TO D/C PT TO [facility]. REPORT GIVEN TO [facility].
== END 2022-09-22 02:22 | disposition home or self-care (01) ==
LOC: ER 18:23
DX: S00.81XA Abrasion of other part of head, initial encounter (principal); R51.9 Headache, unspecified; I10 Essential (primary) hypertension; E78.5 Hyperlipidemia, unspecified; I25.2 Old myocardial infarction; K21.9 Gastro-esophageal reflux disease without esophagitis; Z88.0 Allergy status to penicillin; Z91.013 Allergy to seafood; Z79.899 Other long term (current) drug therapy; W22.8XXA Striking against or struck by other objects, initial encounter; Y93.89 Activity, other specified; Y92.89 Other specified places as the place of occurrence of the external cause; Y99.8 Other external cause status
CPT/HCPCS: 70450-TC

== ENCOUNTER 2022-11-09 18:14 | Emergency (ER) | payer MEDICARE ==
[~2022-11-09] VITALS: Ht 182.9 cm; Wt 86.2 kg
--- NOTE | 2022-11-09 18:40 | NUR ---
[id number] from [facility] for increasing confusion/altered mentation x 3 days. bg [id number]
--- NOTE | 2022-11-09 19:10 | NUR ---
establishd iv line 20 g right ac
--- NOTE | 2022-11-09 19:14 | NUR ---
covid / blood / urine sample obtained sent to lab
--- NOTE | 2022-11-09 19:30 | NUR ---
RECEIVED REPORT FROM AMENA YIP. PATIENT CAME EARLIER WITH CC OF AMS. PATIENT IS IN BED. AAOX3. WITH IV YISEL ON RIGHT FA G20. ATTACHED TO MONITOR. VITALS CHECKED.
[2022-11-09 19:56] LABS: BILIRUBIN,URINE NEGATIVE (NEGATIVE); COLOR,URINE YELLOW (YELLOW); LEUKOCYTE ESTERASE ,URINE NEGATIVE (NEGATIVE); NITRITE, URINE NEGATIVE (NEGATIVE); PH,URINE 5.5 (5.0-8.0); PROTEIN,URINE NEGATIVE (NEGATIVE); UGLUCOSE NEGATIVE (NEGATIVE); UROBILINOGEN,URINE 0.2 EU/dL (0.2)
[2022-11-09 20:01] LABS: BASOPHILS % (AUTO) 0.5 % (0.0-2.0); HEMATOCRIT 47 % (39-51); HEMOGLOBIN 15.4 g/dL (13.5-17.5); LYMPHOCYTES # (AUTO) 0.9 K/uL (0.8-4.8); LYMPHOCYTES % (AUTO) 12.6 % (20.0-44.0); MEAN CORPUSCULAR HGB CONC 33 g/dl (31.0-36.0); MEAN CORPUSCULAR VOLUME 89 fL (80-96); MONOCYTES # (AUTO) 0.6 K/uL (0.1-1.30); MONOCYTES % (AUTO) 8.3 % (2.0-12.0); NEUTROPHILS # (AUTO) 5.3 K/uL (1.8-8.9); NEUTROPHILS % (AUTO) 77.6 % (43.0-81.0); PLATELET COUNT (AUTO) 191 K/uL (150-450); RED BLOOD CELL COUNT(AUTO) 5.25 MIL/uL (4.5-6.0); WHITE BLOOD COUNT (AUTO) 6.9 K/uL (4.3-11.0)
[2022-11-09 20:02] LABS: CALCIUM, SERUM 9.2 mg/dL (8.5-10.1); CARBON DIOXIDE 23 mmol/L (21-32); CHLORIDE 104 mmol/L (98-107); CREATININE 1.1 mg/dL (0.6-1.3); GLUCOSE 149 mg/dL (74-106); POTASSIUM 3.8 mmol/L (3.5-5.1); SODIUM SERUM 139 mmol/L (136-145); UREA NITROGEN, BLOOD 26 mg/dL (7-18)
[2022-11-09 20:05] LABS: ALANINE AMINOTRANSFERASE 32 U/L (12-78); ALKALINE PHOSPHATASE 58 U/L (46-116); ASPARTATE AMINOTRANSFERASE 27 U/L (15-37); BILIRUBIN,DIRECT 0.2 mg/dL (0.0-0.2); BILIRUBIN,TOTAL 0.8 mg/dL (0.2-1.0); TOTAL PROTEIN, SERUM 7.3 g/dL (6.4-8.2)
--- NOTE | 2022-11-09 22:17 | NUR ---
[facility] CALLED FOR TRANSPORT. ETA 45 MINUTES.
--- NOTE | 2022-11-09 22:52 | NUR ---
REPORT GIVEN TO [facility] UNIT [facility] EMT PAUL. PATIENT WILL BE GOING BACK TO [facility]
--- NOTE | 2022-11-09 22:52 | NUR ---
IV YISEL REMOVED
--- NOTE | 2022-11-09 22:53 | NUR ---
Patient discharged to home in stable condition. Written and verbal after care instructions given. Patient verbalizes understanding of instruction.
[2022-11-09 22:54] VITALS: BP 153/92
== END 2022-11-09 23:31 ==
LOC: ER 18:21
DX: R41.0 Disorientation, unspecified (principal); I10 Essential (primary) hypertension; E78.5 Hyperlipidemia, unspecified; I25.10 Atherosclerotic heart disease of native coronary artery without angina pectoris; K21.9 Gastro-esophageal reflux disease without esophagitis; Z79.899 Other long term (current) drug therapy; Z79.82 Long term (current) use of aspirin; Z20.822 Contact with and (suspected) exposure to COVID-19; Z88.0 Allergy status to penicillin; Z91.013 Allergy to seafood
CPT/HCPCS: 36415; 70450-TC; 71045-TC; 80048-TC; 80076-TC; 82962-TC; 83880; 84484-TC; 85025-TC; 87086-TC; C9803